=== PATIENT | female | born 2005 | race African-American/Black ===

== ENCOUNTER 2025-11-15 09:14 | Emergency (ER) | payer OTHER ==
[~2025-11-15] VITALS: Ht 152.4 cm; Wt 77.0 kg
[2025-11-15 09:15] VITALS: O2SAT 100
[2025-11-15] MEDS: IBUPROFEN 600MG TABLET PO ONE (09:45)
[2025-11-15] MEDS: TETANUS, DIPHTHERIA, PERTUSSIS VAC/PF 0.5ML (>10YR OLD) IM ONE (09:46)
[2025-11-15 12:34] VITALS: BP 119/63; PULSE 95; RESP 16; TEMP 36.7; O2SAT 100
== END 2025-11-15 12:42 | disposition home or self-care (01) ==
LOC: ER 09:14
DX: S00.212A Abrasion of left eyelid and periocular area, initial encounter (principal); M25.562 Pain in left knee; Z23 Encounter for immunization; W10.9XXA Fall (on) (from) unspecified stairs and steps, initial encounter; Y93.89 Activity, other specified; Y92.89 Other specified places as the place of occurrence of the external cause; Y99.8 Other external cause status
CPT/HCPCS: 73560; 73562; 90471; 90715; 99285